=== PATIENT | female | born 1955 | race African-American/Black ===

== ENCOUNTER 2016-09-22 05:15 | Day surgery (SDC) | payer OTHER ==
[~2016-09-22] VITALS: Ht 165.1 cm; Wt 71.2 kg
--- NOTE | ~2016-09-22 | O ---
[facility] [place] [address] OPERATIVE REPORT Name: TAMMI BRAN Room #: DEP [facility]#: [id number] Admission: 09/22/16 Attend Phys: Denny Holt MD Discharge: 09/22/16 Date of : 51 Report #: [id number] THIS REPORT FOR: //name// CC: Denny Loya DATE OF SERVICE: 09/22/2016 PREOPERATIVE DIAGNOSIS: Left shoulder impingement syndrome and rotator cuff tear. POSTOPERATIVE DIAGNOSIS: Left shoulder impingement syndrome and rotator cuff tear. PROCEDURE: Left shoulder decompressive acromioplasty and rotator cuff repair. SURGEON: Denny Holt MD. INDICATIONS: This 60-year-old female complains of chronic progressive left shoulder pain, clinical evaluation, and MRI scan confirm impingement and a full thickness rotator cuff tear involving the supraspinatus portion. She has tried conservative measure without benefit and has elected to go ahead with decompressive acromioplasty and rotator cuff repair. DESCRIPTION OF PROCEDURE: The patient was placed under general anesthesia. The left shoulder and arm were meticulously prepped and draped. An interscalene block was also applied. An anterior longitudinal skin incision was made, just at the anterior aspect of the acromion, extending distally about 3-4 cm. This was carried through subcutaneous tissues, exposing the deltoid, which was gently split longitudinally along its fibers. The anterior acromion was found to be prominent with some spurring, causing obvious impingement. This area of anterior acromion was resected and then a subacromial decompression was performed, removing portion of the undersurface using a small osteotome and then smoothing this with a small hand rasp. This resulted in significant improvement in the subacromial space and seemed to resolve any ongoing impingement. This allowed good visualization of the rotator cuff. There was an obvious full thickness tear, which was a V-shaped, slightly retracted tear in the mid portion of the supraspinatus. The rough and irregular atrophied edge was resected back to a more appropriate stable tendon. This allowed better inspection of the joint. The biceps tendon was still present, but was obviously frayed and involved with moderate partial thickness tearing. These areas were debrided, but the remaining tendon was left in place. The labrum seemed to be intact, based upon the limited visualization possible. The cartilage surfaces revealed only minor degenerative wearing. The leading edge of the rotator cuff tear was then repaired. The V-shaped tear extended back for enough of that, two transverse sutures were used to simply bringing the edges back and narrowing the [address] [address] OPERATIVE REPORT Name: TAMMI BRAN Alicia Room #: DEP [facility] Jacqueline.#: [id number] Admission: 09/22/16 Attend Phys: Denny Holt MD Discharge: 09/22/16 Date of : 51 Report #: [id number] V-down more distally, three more sutures using #2 Tevdek were applied. These were then brought through the bone of the greater tuberosity. A cancellous bleeding bone surface was first repaired, removing some spurring in this area as well. The sutures were then passed through this area bone using a large trocar needle, bringing them out individually through the lateral aspect of the humeral metaphysis. Once these were spaced appropriately, firm tension was applied, and the cuff came back nicely to a solid repair. The more proximal sutures were tied closing down the more proximal aspect of the tear. The more distal sutures were tied over a bone individually creating several points of very satisfactory stable fixation. Once the repair was complete, the subacromial space was again inspected, and there seemed to be no further significant impingement, and the repair seemed to be satisfactory, firm, and watertight. The entire wound was copiously irrigated. The deltoid was then repaired using multiple #1 Vicryl sutures. The first several were placed through the bone of the leading edge of the acromion, reinforcing the attachment back to bone. The more distal were placed [id number], in the deltoid for a good solid repair. The subcutaneous tissues were closed with 2-0 Monocryl. The skin was closed with 2-0 Prolene. A sterile dressing was applied. The arm was protected in an arm sling. The patient was awakened and returned to the recovery room in good condition. By: 1423 1822 eDnny Holt MD /rsee
--- NOTE | ~2016-09-22 | EKG ---
[place] [address] [facility] [employer] [place] [address] ELECTROCARDIOGRAM REPORT Name: TAMMI BRAN Room #: DEP [facility]#: [id number] Admission: 09/22/16 Attend Phys: Denny Holt MD Discharge: 09/22/16 Date of : 51 Report #: [id number] THIS REPORT FOR: //name// [facility] Test Date: 2016-09-22 Test Time: 10:27:56 Pat Name: TAMMI BRAN Department: Room: 150 10 Gender: F Deck Molder: LINDA : 1955 Requested By: Denny Holt Order Number: [id number] MD: Ronaldo Lees Measurements Intervals [place] Rate: 68 P: 4 NE: 176 QRS: -26 QRSD: 96 T: 24 QT: 376 QTc: 400 Interpretive Statements Sinus rhythm Abnormal R-wave progression, early transition Left ventricular hypertrophy No previous ECG available for comparison Electronically Signed On 09-23-2016 9:27:31 CDT by Ronaldo Lees [email or web address] <ELECTRONICALLY SIGNED> By: Ronaldo Lees MD, [facility] 09/23/16 0927 1027 26 Ronaldo Lees MD, FACC /EPI
[~2016-09-22 05:15] MED LIST: AMLODIPINE BESY10 MG PO; ASPIRIN81 M2 PO; BINOSTO70 MG PO; BIOTIN2500 MCG PO; CLOBETASOL PROP60 G3 TP; CYMBALTA30 MG PO; ELIDEL100 GM TP; ETODOLAC500 MG PO; FISH OIL 1,0001 EAC5 PO; FISH OIL 1,001000 M2 PO; FLONASE 0.05%50 MCG NASAL; GABAPENTIN100 MG PO; GLUCOPHAGE500 MG PO; HYDROCHLOROTHIA25 M1 PO; HYDROXYCHLOROQ200 M1 PO; LIPITOR10 MG PO; METFORMIN HCL500 MG PO; OMEPRAZOLE 20 M20 M1 PO; PRINIVIL10 MG PO; PROBIOTIC1 EAC1 PO; RESTASIS1 EACH OP; SIMVASTATIN40 MG PO; TAPAZOLE5 MG PO; VITAMIN D1000 UNI1 PO; VITAMIN D1000 UNIT PO
[2016-09-22 11:00] VITALS: BP 136/83
[2016-09-22 14:55] VITALS: BP 136/83
== END 2016-09-22 15:40 | disposition home or self-care (01) ==
LOC: OR 05:15 → TBA 05:15 → OR 09:59
DX: M75.122 Complete rotator cuff tear or rupture of left shoulder, not specified as traumatic (principal); M75.42 Impingement syndrome of left shoulder; G89.29 Other chronic pain; G47.33 Obstructive sleep apnea (adult) (pediatric); I10 Essential (primary) hypertension; E78.00 Pure hypercholesterolemia, unspecified; E11.9 Type 2 diabetes mellitus without complications; K21.9 Gastro-esophageal reflux disease without esophagitis; Z90.710 Acquired absence of both cervix and uterus; Z98.890 Other specified postprocedural states
CPT/HCPCS: 50010; 50386; 50417; 50733; 53023; 56525; 56526

== ENCOUNTER → 2018-01-01 | Outpatient (CLI) | payer OTHER | LOC: RAD 10:59 | DX: Z12.31 Encounter for screening mammogram for malignant neoplasm of breast (principal) ==